=== PATIENT | female | born 1950 | race Caucasian/White ===

== ENCOUNTER 2022-11-03 10:49 | Outpatient (AMB) | payer MEDICARE, SELFPAY ==
--- NOTE | 2022-11-03 11:18 | A.SPINEOV_ITS ---
Intake Intake Visit Reasons: Back pain Intake Note: Ms. Crenshaw is here today c/o back pain. MRI done @ [facility] Medical/brought disc. Machine Shop Instructor Required: No Assessment & Plan Assessment & Plan (1) Neuroforaminal stenosis of lumbar spine: Code(s): M48.061 - Spinal stenosis, lumbar region without neurogenic claudication (2) Lumbar back pain with radiculopathy affecting left lower extremity: Code(s): M54.16 - Radiculopathy, lumbar region Plan Dear colleague Thank you for referring Jodee Crenshaw to the office today with a chief complaint of left leg pain HPI: This 72-year-old female presents with left-sided back pain that radiates down her left thigh. The pain comes returning and with walking and standing. Sitting alleviates the pain. In addition to the pain, she has numbness on the medial side of her thigh alfaro. I removed day L4-5 synovial cyst in February of 2017 for bilateral leg pain to which she responded well. The current pain is in a different distribution. The right side is unaffected. She denies weakness. She has not had lumbar injections. She tried physical therapy. 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 Medications: Prevagen, duloxetine, metoprolol, Eliquis, duloxetine, oxybutynin, pregabalin Allergies: Percocet Physical Exam: Pleasant female. Mild decreased sensation in L4 dermatome on the left side. Hyperreflexia of the upper extremities. Jorge reflex on the right. Radiological Studies: MRI done at [facility] on 08/04/2022 shows a thoracolumbar deformity due to a previous L3-T12 laminectomy and multilevel severe bilateral foraminal stenosis, especially at L4. No residual synovial cyst seen. Impression/Plan: This patient is suffering from left unilateral neurogenic claudication or in an L4 distribution. The treatment will be a left L4 foraminotomy if further conservative treatment does not work. She is going to call the office of Dr. Aguero to request a left L4 nerve block. She will return to my office if surgery is considered. Thank you for allowing me to participate in your patients care. total time spent was45 minutes in counseling ,coordination of plan, personal review of imaging, surgical decision making and subsequent plan Surinder Sorto MD, PhD Spine Fellowship Trained Neurosurgeon Director, [facility] [place] [facility] Coding Level of Care Code New Pt Level 4 (15291) Diagnoses Neuroforaminal stenosis of lumbar spine M48.061 Lumbar back pain with radiculopathy affecting left lower extremity M54.16
== END 2022-11-03 12:22 | disposition home or self-care (01) ==
PROVIDERS: PCP Registered Nurse; Visit Provider Neurological Surgery
DX: M48.061 Spinal stenosis, lumbar region without neurogenic claudication (principal); M54.16 Radiculopathy, lumbar region
CPT/HCPCS: 99204

== ENCOUNTER → 2022-11-03 10:49 | Outpatient (BNVA) | payer MEDICARE, SELFPAY | PROVIDERS: PCP Registered Nurse; Visit Provider Neurological Surgery ==

== ENCOUNTER 2022-12-19 14:10 | Outpatient (AMB) | payer MEDICARE, SELFPAY ==
--- NOTE | 2022-12-19 15:04 | HO.SPINEOV ---
Intake Intake Visit Reasons: discuss sx Intake Note: Mr. Crenshaw is here today to discuss surgical options. Electric Repair Supervisor Required: No Assessment & Plan Assessment & Plan (1) Lumbar back pain with radiculopathy affecting left lower extremity: Code(s): M54.16 - Radiculopathy, lumbar region (2) Neuroforaminal stenosis of lumbar spine: Code(s): M48.061 - Spinal stenosis, lumbar region without neurogenic claudication Plan Mrs Crenshaw is back in the office today. Please see Dr. Sorto note for the specifics of the problem. She came here to review her procedure that is upcoming left L4 foraminotomy. We reviewed the procedure at length including risks, benefits, recovery etc.. During our discussion she told me she is on a immunosuppressant medication called Tocilizumab. She takes this as monthly infusion for giant cell arteritis. The half life of the medication is 20 days according to the literature. This meaning, generally 3 half lives is an acceptable amount of time to be sure the medication is cleared out of her system. Her surgery was scheduled in [address] Sorto does not feel comfortable that we could give her optimal chance to avoid infection after surgery. He would like her to be off this for 2 months so we have rescheduled her for early February and she will no longer take this medication. She is in the middle of a cardiac workup with a Holter monitor any way for persistent symptoms of dizziness, sweating and fatigue which comes and goes which her clinical cytogeneticist scientist suspects may be paroxysmal AFib. She is on Eliquis for this. That workup should be completed by the time her surgery is booked for February. Total amount of time spent in this visit was 20 minutes in discussion of symptoms, lumbar imaging results and subsequent plan of care Javier Sorto MD,PhD [facility] Coding Level of Care Code Est Pt Level 3 (80406) Diagnoses Lumbar back pain with radiculopathy affecting left lower extremity M54.16 Neuroforaminal stenosis of lumbar spine M48.061
== END 2022-12-19 16:15 | disposition home or self-care (01) ==
PROVIDERS: PCP Registered Nurse; Visit Provider Neurological Surgery
DX: M54.16 Radiculopathy, lumbar region (principal); M48.061 Spinal stenosis, lumbar region without neurogenic claudication
CPT/HCPCS: 99213

== ENCOUNTER → 2022-12-19 14:10 | Outpatient (BNVA) | payer MEDICARE, SELFPAY | PROVIDERS: PCP Registered Nurse; Visit Provider Neurological Surgery | DX: M54.16 Radiculopathy, lumbar region (principal); M48.061 Spinal stenosis, lumbar region without neurogenic claudication | CPT/HCPCS: 99212 ==

== ENCOUNTER 2024-07-11 14:05 | Outpatient (AMB) | payer MEDICARE, SELFPAY ==
--- OUTSIDE RECORDS SUMMARY | 2024-07-11 14:09 | XMS_ITS | Encounter Summary ---
Author Organization [facility] Address [address] [place] [address] Care Team Providers Care Natural Fabricator Name Role Phone Suellen Joseph JULIAN Primary Care Provider [phone] Encounter Details Date Type Department Care Team (Late st Contact Info) Description 07/01/2024 Orders Only [facility] [address] [place] [id number] Spring Fitter Helper: Maricruz Wellington MD [address] [place] [id number] Osteoporosis, post-menopausal (Primary Dx) Social History Tobacco Use Types Packs/Day Years Used Date Smoking Tobacco: Never Passive Smoke Exposure: Never Smokeless Tobacco: Never Alcohol Use Standard Drinks/Week Comments Yes 0 (1 standard drink = 0.6 oz pur e alcohol) socaily Comments Unknown Sex and Gender Information Value Date Recorded Sex Assigned at Female 04/10/2023 1:47 PM EST Legal Sex Female 12:13 AM EDT Gender Identity Female 04/10/2023 6:36 PM EST Sexual Orientation Straight 04/10/2023 6: 36 PM EST documented as of this encounter Plan of Treatment Upcoming Encounters Date Type Department Care Team (Late st Contact Info) Description 09/30/2024 10:30 AM EDT Infusion [facility] [address] [place] [id number] Maricruz Nowak MD [address] [place] [phone] documented as of this encounter Visit Diagnoses Diagnosis Osteoporosis, post-menopausal- Primary Senile osteoporosis documented in this encounter Care Teams Natural Fabricator Relationship Specialty Start Date End Date Suellen Joseph NP [address] [address] PCP - General Nurse Practitioner Family 01/05/2306/20 documented as of this encounter
--- NOTE | 2024-07-11 14:12 | A.SPINEOV_ITS ---
Intake Visit Reasons: R side middle back to toes numb 3-4 weeks Intake Note: Ms. Crenshaw is here today c/o Rt. sided numbness X3-4 weeks. Inpatient Services Rn Required: No Assessment & Plan Assessment & Plan (1) Neuroforaminal stenosis of lumbar spine: Code(s): M48.061 - Spinal stenosis, lumbar region without neurogenic claudication Category: Medical (2) Bilateral lumbar radiculopathy: Code(s): M54.16 - Radiculopathy, lumbar region Category: Medical Plan Dear colleague, On 07/11/2024 I saw Jodee Crenshaw. She is a 74-year-old female known to our practice. We originally saw her for left radiculopathy in an L4 distribution. Her offered her an L4 foraminotomy. She was in the middle of an evaluation by cardiology and for whatever reason the surgery did not occur. She has been having shots that are no longer helpful for the left-sided pain. Today actually she comes for the right leg that since 6 weeks is having a burning pain in his same L4 distribution. The pain is constantly present. The pain does not in terfere with sleeping. She denies weakness or numbness. An MRI at [facility] shows severe bilateral L4 foraminal stenosis in addition to multilevel degenerative changes. This patient is suffering from a bilateral L4 foraminotomy due to severe bilateral L4 neuroforaminal stenosis. I offered her a bilateral L4 foraminotomy. She recently saw her potato chip maker and she is scheduled for a stress test. She denies chest pain or shortness of breath. She is also on tocilizumab every other week for giant cell arteritis. She already spoke to her doctor and the plan will most likely be to stop this 1 week before surgery and to restart when the incision is healed. The plan will be scheduled for surgery as soon as results of the stress test allow us to proceed. She will call my office with the results. I spent 40 minutes in his consult to review imaging and discussing plan of care. Surinder Sorto MD, PhD Spine Fellowship Trained Neurosurgeon Director, [facility] [place] [facility] Coding Level of Care Code Est Pt Level 5 (17389) Diagnoses Neuroforaminal stenosis of lumbar spine M48.061 Bilateral lumbar radiculopathy M54.16
== END 2024-07-11 15:17 | disposition home or self-care (01) ==
LOC: HO.HNS 14:06
PROVIDERS: PCP Registered Nurse; Visit Provider Neurological Surgery
DX: M48.061 Spinal stenosis, lumbar region without neurogenic claudication (principal); M54.16 Radiculopathy, lumbar region
CPT/HCPCS: 99215

== ENCOUNTER → 2024-07-11 14:05 | Outpatient (BNVA) | payer MEDICARE, SELFPAY | PROVIDERS: PCP Registered Nurse; Visit Provider Neurological Surgery | DX: M48.061 Spinal stenosis, lumbar region without neurogenic claudication (principal); M54.16 Radiculopathy, lumbar region | CPT/HCPCS: 99212 ==

== ENCOUNTER 2024-08-21 05:47 | Day surgery (SDC) | payer MEDICARE, SELFPAY ==
--- OUTSIDE RECORDS SUMMARY | 2024-07-25 11:47 | XMS_ITS | Encounter Summary ---
Author Organization [facility] Address [address] [place] [address] Care Team Providers Care Web Services Architect Name Role Phone Javier Jorge Primary Care Provider [phone] Encounter Details Date Type Department Care Team (Late st Contact Info) Description 07/11/2024 Orders Only [facility] XRay [address] [place] [address] Lali Felder MD [address], [place] [id number] Social History Tobacco Use Types Packs/Day Years [...] Info) Description 09/30/2024 10:30 AM EDT Infusion [facility] [address] [place], [place] [phone] Maricruz Nowak MD [address] [place] [address] documented as of this encounter Visit Diagnoses Not on filedocumented in this encounter Care Teams Web Services Architect Relationship Specialty Start Date End Date Javier Jorge [address] [place] [address] PCP - General 07/09/24 documented as of this encounter
[2024-08-06 11:54] VITALS: BP 112/68; PULSE 62; RESP 16; O2SAT 96; BMI 32.8
--- NOTE | 2024-08-06 12:17 | HO.ANESPROP2 ---
Documented by User: Luz Walters NP 08/19/24 12:12 HPI - Anesthesia Eval Consult details Narrative: 74yo F for L4 Foramintomy, 08/21/24 No recent illness No CP with house renovations. Some POWERS with stairs that has been ongoing for months Follows [facility] cardiology for PAF, hx pericarditis (2021). Last office eval 05/2024 after [facility] ER for chest pain (neg EKG and neg trops). Chest pain has not recurred. Treadmill stress negative. PAF: On eliquis Giant cell arteritis: remission with Actemra. Last injection 07/29/24 Reports slow to wake after anesthesia PMFSH Active Problems Active Problems: All Active Problems Bilateral lumbar radiculopathy (Acute) Lumbar back pain with radiculopathy affecting left lower extremity (Acute) Neuroforaminal stenosis of lumbar spine (Acute) Past Medical History Medical History Seasonal allergies HTN (hypertension) Arthritis Shoulder pain, bilateral Back pain POWERS (dyspnea on exertion) Hx of gastroesophageal reflux (GERD) Hypoglycemia Hx of pleural effusion (09/2021) Depression History of pericarditis (09/2021) PAF (paroxysmal atrial fibrillation) Giant cell arteritis Hx of chest pain Anxiety Family History Family history of problems with anesthesia: No Surgical History Surgical History Hx of spinal surgery History of repair of hiatal hernia Hx of colonoscopy History of spinal surgery (~1963) History of Problems with Anesthesia: No Social History Social History Household Members Other:: daughter Are you a primary career resource technician to a significant other at home: No Do you presently have visiting nurse or other home services: No Patient Tobacco Use Status: Never used Tobacco Use of substances other than those prescribed or required for medical reasons: No Have you been hit, kicked, punched, or otherwise hurt by someone within the past year? If so, by whom?: No Are you DNR?: No Advance Directives: No Advance Directives Information Provided: Yes Advance Directives on File: No Poor oral hygiene: No (plans for implant removal 08/13/24) Meds Allergies Allergy/AdvReac Type Severity Reaction Status Date / Time sulfamethoxazole (From Allergy Severe Itching Verified 08/21/24 06:07 Bactrim) trimethoprim (From Bactrim) Allergy Severe Itching Verified 08/21/24 06:07 oxycodone (From Percocet) Allergy Intermediate Vomiting Verified 08/21/24 06:07 Home Medications ?Medication ?Instructions ?Recorded ?Confirmed ?Last Taken ?Type acetaminophen 500 mg tablet (Pain 500 mg PO Q4H PRN pain 08/06/24 08/21/24 Unknown History Reliever Extra Strength (acetaminophen)) apixaban 5 mg tablet (Eliquis) 5 mg PO BID 08/06/24 08/21/24 08/17/24 History Held on 08/21/24. Instructions: Resume on 08/24/24. You can restart Eliquis 3 days after surgery calcium 600 mg (as 1 tab PO BID 08/06/24 08/21/24 Unknown History carbonate)-vitamin D3 20 mcg (800 unit) tablet (Caltrate with Vitamin D3) duloxetine 60 mg capsule,delayed 60 mg PO DAILY 08/06/24 08/21/24 Unknown History release estradiol 0.01% (0.1 mg/gram) 1 appl vaginal .QWEEK 08/06/24 08/21/24 Unknown History vaginal cream fluticasone propionate 50 1 spray intranasal DAILY 08/06/24 08/21/24 Unknown History mcg/actuation nasal spray,suspension (Flonase Allergy Relief) gabapentin 100 mg capsule 100 mg PO TID 08/06/24 08/21/24 08/20/24 History ipratropium bromide 42 mcg (0.06 2 spray intranasal DAILY 08/06/24 08/21/24 Unknown History %) nasal spray metoprolol succinate 25 mg 25 mg PO DAILY 08/06/24 08/21/24 08/21/24 History tablet,extended release 24 hr tocilizumab 162 mg/0.9 mL 162 mg subcut Q2W 08/06/24 08/21/24 07/29/24 History subcutaneous pen injector (Actemra ACTPen) Exam Height,Weight and Vital Signs: Height 5 ft 4 in Weight 86.7 kg Last Vital Signs Pulse 62 08/06/24 11:54 Resp 16 08/06/24 11:54 BP 112/68 08/06/24 11:54 Pulse Ox 96 08/06/24 11:54 O2 Del Method Room Air 08/06/24 11:54 Pertinent Lab Results Pertinent Lab Results: Cardiology Labs Blood Count & Diff? General Chemistry? Cardiac? Lipid Studies? WBC:?3.7 k/mm3?Low (05/30/24) Sodium: 143 mmol/L (05/30/24) Bilirubin, Total: 0.5 mg/dL (04/02/24) Cholesterol:?258 mg/dL?High (04/02/24) RBC: 4.73 m/mm3 (05/30/24) Potassium: 4.2 mmol/L (05/30/24) ? Triglycerides:?166 mg/dL?High (04/02/24) Hgb: 14.4 Gm/dL (05/30/24) Chloride: 105 mmol/L (05/30/24) ? HDL Cholesterol: 64 mg/dL (04/02/24) Hct: 44.2 % (05/30/24) Bicarbonate Level: 26 mmol/L (05/30/24) ? Non HDL Cholesterol:?194 mg/dL?High (04/02/24) MCV: 93.4 femtoliters (05/30/24) Anion Gap: 12 mmol/L (05/30/24) ? LDL Chol Calc ([facility]):?164 mg/dL?High (04/02/24) Platelet Count: 217 k/mm3 (05/30/24) Glucose Level: 88 mg/dL (05/30/24) ? ? ? BUN: 15 mg/dL (05/30/24) ? ? ? BUN: 20 mg/dL (04/02/24) ? ? ? Creatinine-Blood: 0.9 mg/dL (05/30/24) ? ? ? Estimated GFR Creatinine: 67 ML/MIN/1.73 M2 (05/30/24) ? ? ? Calcium: 9.8 mg/dL (05/30/24) ? ? ? Protein, Total: 6.4 Gm/dL (04/02/24) ? ? ? Albumin: 4.6 Gm/dL (04/02/24) ? ? ? Alkaline Phosphatase: 70 IU/L (04/02/24) ? ? ? AST (SGOT): 23 IU/L (04/02/24) ? ? ? ALT (SGPT): 31 IU/L (04/02/24) Narrative Narrative: ECG 12-Lead ? 10:23:13 Ventricular Rate: 56 BPM Atrial Rate: 56 BPM P-R Interval: 140 ms QRS Duration: 100 ms Q-T Interval: 406 ms QTC Calculation(Bazett): 391 ms P [place]: 24 degrees R [place]: -29 degrees T [place]: 19 degrees Sinus bradycardia Possible Left atrial enlargement Leftward axis Borderline ECG Confirmed Echocardiogram - Complete ? 10:43:13 Summary The left ventricle is normal in size, wall thickness and systolic function. The ejection fraction is 55-65%. The right ventricle is normal in size and function. The tricuspid valve is normal in appearance with mild to moderate tricuspid regurgitation. Signature ? Signed By: Josefina SHEPHERD, Brandon Simental Treadmill Stress 06/2024 Conclusions Summary No evidence of stress induced ischemia or prior myocardial infarction. Normal left ventricular ejection fraction, no wall motion abnormalities, normal chamber size. Airway Mallampati Class: II TM Dist: >3cm Neck ROM: Full ( tight side to side) Loose/Missing/Broken Teeth: Yes (extractions planned for 08/14/24, 1 implant to remain) Heart: RRR Lungs: CTAB Assessment and Plan Assessment Anesthesia Assessment: Anesthesia Plan Discussed and PAT Visit Final Anesthetic Review Family History of Problems with Anesthesia: No History of Problems with Anesthesia: No Documented by User: Arelis Pruitt MD 08/21/24 09:35 [facility] Past Medical History Medical History Seasonal allergies HTN (hypertension) Arthritis Shoulder pain, bilateral Back pain POWERS (dyspnea on exertion) Hx of gastroesophageal reflux (GERD) Hypoglycemia Hx of pleural effusion (09/2021) Depression History of pericarditis (09/2021) PAF (paroxysmal atrial fibrillation) Giant cell arteritis Hx of chest pain Anxiety Surgical History Surgical History Hx of spinal surgery History of repair of hiatal hernia Hx of colonoscopy History of spinal surgery (~1963) Social History Social History Household Members Other:: daughter Are you a primary career resource technician to a significant other at home: No Do you presently have visiting nurse or other home services: No Patient Tobacco Use Status: Never used Tobacco Use of substances other than those prescribed or required for medical reasons: No Have you been hit, kicked, punched, or otherwise hurt by someone within the past year? If so, by whom?: No Are you DNR?: No Advance Directives: No Advance Directives Information Provided: Yes Advance Directives on File: No Poor oral hygiene: No (plans for implant removal 08/13/24) Meds Allergies Allergy/AdvReac Type Severity Reaction Status Date / Time sulfamethoxazole (From Allergy Severe Itching Verified 08/21/24 06:07 Bactrim) trimethoprim (From Bactrim) Allergy Severe Itching Verified 08/21/24 06:07 oxycodone (From Percocet) Allergy Intermediate Vomiting Verified 08/21/24 06:07 Home Medications ?Medication ?Instructions ?Recorded ?Confirmed ?Last Taken ?Type acetaminophen 500 mg tablet (Pain 500 mg PO Q4H PRN pain 08/06/24 08/21/24 Unknown History Reliever Extra Strength (acetaminophen)) apixaban 5 mg tablet (Eliquis) 5 mg PO BID 08/06/24 08/21/24 08/17/24 History Held on 08/21/24. Instructions: Resume on 08/24/24. You can restart Eliquis 3 days after surgery calcium 600 mg (as 1 tab PO BID 08/06/24 08/21/24 Unknown History carbonate)-vitamin D3 20 mcg (800 unit) tablet (Caltrate with Vitamin D3) duloxetine 60 mg capsule,delayed 60 mg PO DAILY 08/06/24 08/21/24 Unknown History release estradiol 0.01% (0.1 mg/gram) 1 appl vaginal .QWEEK 08/06/24 08/21/24 Unknown History vaginal cream fluticasone propionate 50 1 spray intranasal DAILY 08/06/24 08/21/24 Unknown History mcg/actuation nasal spray,suspension (Flonase Allergy Relief) gabapentin 100 mg capsule 100 mg PO TID 08/06/24 08/21/24 08/20/24 History ipratropium bromide 42 mcg (0.06 2 spray intranasal DAILY 08/06/24 08/21/24 Unknown History %) nasal spray metoprolol succinate 25 mg 25 mg PO DAILY 08/06/24 08/21/24 08/21/24 History tablet,extended release 24 hr tocilizumab 162 mg/0.9 mL 162 mg subcut Q2W 08/06/24 08/21/24 07/29/24 History subcutaneous pen injector (Actemra ACTPen) Assessment and Plan Final Anesthetic Review NPO: Yes ASA Class: III Final Preanesthetic Review: No Changes in Pt Med Stat, Meds/Allgs Chart Reviewed, Consent Obtained/Reviewed and Anes Risks/Benef Reviewed Patient Risk: Intermediate Procedure Risk: Intermediate Anesthetic Plan Anesthetic Plan: GA Disposition: Standard PACU
[2024-08-21] VITALS (7 sets, daily range): BP systolic 123–172; BP diastolic 67–91; PULSE 59–95; RESP 12–16; TEMP 36.1–36.7; O2SAT 93–98; BMI 32.3
--- NOTE | ~2024-08-21 | FL_ITS ---
EXAMINATION: FL GUIDANCE ONLY HISTORY: l4 foraminotomy COMPARISON: None available. TECHNIQUE: Fluoroscopy time: 7 seconds. Cumulative Dose: 5.7722 mGy. DAP: 2.5108 mGym2 Images: 1. FINDINGS: A single fluoroscopic spot film of the lumbar spine in the lateral projection demonstrates a probe overlying the pedicles of L5. FL/FL guidance in OR IMPRESSION: Fluoroscopy during procedure. Please see procedure report for additional information. Electronically signed by: Lauri Loco MD 08/21/2024 10:01 AM EDT
[2024-08-21] MEDS: Lactated Ringers 1,000 ML 100 ML IVCONT (06:41)
--- NOTE | 2024-08-21 07:02 | P.HPSUR_ITS ---
Pre-Procedural Eval Section A - 24 Hr Update-Section A only Date of Service: 08/21/24 The patient is an INPATIENT: No Changes since office visit: No Cold of Flu in the past 2 weeks, No New Medical Problems, No Changes in Medication and No Patient answered all questions The patient has been examined within 24 hours of the surgical procedure. The History & Physical has been completed within 30 days and I have reviewed it.: No Section B - Complete if H&P > 30 days Chief Complaint: Spinal stenosis, lumbar region without neurogenic Allergies: Allergies Allergy/AdvReac Type Severity Reaction Status Date / Time sulfamethoxazole (From Allergy Severe Itching Verified 08/21/24 06:07 Bactrim) trimethoprim (From Bactrim) Allergy Severe Itching Verified 08/21/24 06:07 oxycodone (From Percocet) Allergy Intermediate Vomiting Verified 08/21/24 06:07 Review of Systems Sugical H&P ROS: Negative: Constitution, Cardiovascular, Respiratory, Neurological, Psychiatric, Hem-Onc, Allergic/Immunologic, Gastrointestinal, Genitourinary, Musculoskeletal, Integumentary, Endocrine and Eyes/Ears/Nose/Throat Exam Surgical H&P Exam: Normal: HEENT, Normal: Heart, Normal: Lungs, Normal: Extremities, Normal: Abdomen, Normal: Skin and Normal: Neurological (awake, aler t,oriented x 3 ) Plan Diagnosis/Plan: Unchanged Left L4 foraminotomy Time Spent With Patient Time: Total time managing care of this patient today __5__ minutes.
--- NOTE | 2024-08-21 07:37 | P.HPSUR_ITS ---
Pre-Procedural Eval Section A - 24 Hr Update-Section A only Date of Service: 08/21/24 The patient is an INPATIENT: No Changes since office visit: No Cold of Flu in the past 2 weeks, No New Medical Problems, No Changes in Medication and No Patient answered all questions The patient has been examined within 24 hours of the surgical procedure. The History & Physical has been completed within 30 days and I have reviewed it.: No Section B - Complete if H&P > 30 days Chief Complaint: Spinal stenosis, lumbar region without neurogenic Allergies: Allergies Allergy/AdvReac Type Severity Reaction Status Date / Time sulfamethoxazole (From Allergy Severe Itching Verified 08/21/24 06:07 Bactrim) trimethoprim (From Bactrim) Allergy Severe Itching Verified 08/21/24 06:07 oxycodone (From Percocet) Allergy Intermediate Vomiting Verified 08/21/24 06:07 Review of Systems Sugical H&P ROS: Negative: Constitution, Cardiovascular, Respiratory, Neurological, Psychiatric, Hem-Onc, Allergic/Immunologic, Gastrointestinal, Genitourinary, Musculoskeletal, Integumentary, Endocrine and Eyes/Ears/Nose/Throat Exam Surgical H&P Exam: Normal: HEENT, Normal: Heart, Normal: Lungs, Normal: Extremities, Normal: Abdomen, Normal: Skin and Normal: Neurological (awake, aler t,oriented x 3 ) Plan Diagnosis/Plan: Unchanged bilateral L4 foraminotomy Time Spent With Patient Time: Total time managing care of this patient today __5__ minutes.
--- NOTE | 2024-08-21 07:39 | PM.DS ---
DS: Providers Provider Date of Service: 08/21/24 Date of discharge: 08/21/24 Primary care physician: Javier Jorge NP Admitting clinician: Surinder Sorto DS: Diagnosis Discharge Diagnosis (1) Neuroforaminal stenosis of lumbar spine: Status: Acute DS: Summary Time Attestation Discharge Coordination Time (in mins): 5 Quality: Safe Use of Opioids Does Pt have an Active Cancer Diagnosis on the Problem List?: No Quality: Stroke Does the patient have a stroke diagnosis?: No Physical Exam Vital Signs: Vital Signs: Last Vital Signs Temp 98.0 F 08/21/24 06:14 Pulse 59 08/21/24 06:14 Resp 16 08/21/24 06:14 BP 123/67 08/21/24 06:14 Pulse Ox 98 08/21/24 06:14 O2 Del Method Room Air 08/21/24 06:14 BMI result Body Mass Index 32.3 Discharge Plan Discharge Patient Disposition: Home, Self-Care Referrals: Javier Jorge NP [Primary Care Provider, Medical] - 1 Week Discharge Medications: Continued acetaminophen [Pain Reliever ES(acetaminophn)] 500 mg tablet 500 mg PO Q4H PRN (Reason: pain) gabapentin 100 mg capsule 100 mg PO TID metoprolol succinate 25 mg tablet extended release 24 hr 25 mg PO DAILY estradiol 0.01 % (0.1 mg/gram) cream 1 appl vaginal .QWEEK ipratropium bromide 42 mcg (0.06 %) spray,non-aerosol 2 spray intranasal DAILY duloxetine 60 mg capsule,delayed release(DR/EC) 60 mg PO DAILY calcium carbonate-vitamin D3 [Caltrate with Vitamin D3] 600 mg-20 mcg (800 unit) tablet 1 tab PO BID fluticasone propionate [Flonase Allergy Relief] 50 mcg/actuation [place],Suspension 1 spray INTRANASAL DAILY Rx Instructions: administer into each nostril Actemra ACTPen 162 mg/0.9 mL Pen Injector 162 mg SUBCUT Q2W Held Eliquis 5 mg tablet 5 mg PO BID Hold Instructions: Resume on 08/24/24. You can restart Eliquis 3 days after surgery Discharge Orders: Discharge Order (Routine); Ordered 08/21/24 Ordered By: Javier Walden Diet: Advance to usual diet Activity on Discharge: As tolerated Activity Restrictions/Additional Instructions: After your spinal surgery we ask you to observe the following restrictions/guidelines: Activity: It is normal to feel some discomfort as you increase your activity, but that will improve with time. We ask you avoid heavy lifting or acitivities that cause pain. As a general rule, 8lbs is a safe limit for lifting right after surgery. Walk as much as you feel comfortable but not to exhaustion. You will feel extra tired the first few days after surgery. Stay well hydrated. It is OK to walk up and down stairs You may return to driving when you are off narcotics (such as vicodin, oxycodone, dilaudid, etc), and you are back to normal functional capacity. If you have any concerns please check with office before driving. Return to work is specific to each patient and each surgery, so please speak with your doctor/PA at first follow up. Please bring paperwork such as FMLA at that time if you need it filled out. Medications: For optimum pain control, it is best to start with a combination of 500 mg of Tylenol every 4 hours with 600 mg of Motrin every 8 hours, and use narcotics as needed in between for breakthrough pain. We will give you a short supply of narcotics after surgery (usually one weeks worth). If you need more please call the office but do not use more than prescribed. You will need to give our office 48 hours notice if you need narcotics refilled and we do not fill narcotics on weekends or evenings. If you are on a narcotic, it is a good idea to take a stool softener such as colace or senna to avoid constipation If you take blood thinner such as aspirin, Plavix, Coumadin, Effient, Eliquis etc for conditions such as Afib, DVT, Pulmonary embolus, coronary disease, stents etc please speak with your surgeon about specific details as to when you can resume these medications. You can resume NSAIDs on post op day 1 (eg: Motrin, Naproxen, etc). Follow up: Please call the office, , after surgery to arrange a 3 week follow up for wound check. Wound Care: You can restart Eliquis 3 days after surgery You may remove your dressing on the first day after surgery. ?You may ?leave open to air. Please do not remove the steri strips underneath. they will fall off on their own in one week. IT IS NORMAL FOR THE WOUND TO OOZE OR BE BLOODY FOR A FEW DAYS AFTER SURGERY. ?IF THIS HAPPENS JUST PLACE NEW DRESSING OVER IT TO AVOID STAINING CLOTHES. You may shower on post op day # 1 We ask that you do not let the water soak the wound. If it does get wet, just towel dry lightly. Please do not scrub your incision or place any type of chemical/ointment on the wound. No tub baths, pools or jacuzzis for one month. If you have any leaking or redness from your wound, or fevers, please call office Print Language: Wolof
--- NOTE | 2024-08-21 09:04 | W.PM.OPN ---
Operative Note Operative Note Date of Service: 08/21/24 Narrative: Preoperative Diagnosis: Bilateral L4 foraminal stenosis Operation: Bilateral L4 Laminotomy, Partial facetectomy and foraminotomy with use of microscope Consent Informed Consent was obtained for this operation. I have explained the nature, purpose and benefits of the operation. I have discussed the risks and benefit of the operation including possible complications or adverse events with patient/family. Alternative(s) were discussed with the patient with their relative benefits and risks as well as the consequences of not accepting the operation were included in obtaining consent. Surgeon: BJORN DICKINSON MD, PHD Procedure Assisted By: sima Jalloh Description of Procedure This patient is suffering from a left leg pain and right leg numbness. MRI shows bilateral L4 foraminal stenosis. The patient was offered a decompression of the nervous structures. The procedure complications were explained. The patient was consented. The patient was brought to the operating room and endotracheally intubated. The patient was turned in prone position on the Jose frame. Prep and drape was done followed by timeout. Physician assistant district attorney provided access. A mid lumbar incision was made followed by release of the paravertebral muscle o bilaterally to expose the L4 laminae and facet joint. An intraoperative x-ray was obtained to confirm the correct level. The microscope was brought in. I took over the procedure. The high-speed drill was used to do a left L4 laminotomy. #2 Kerr[place] was used to further remove the lamina towards the L4 foramen. With a nerve hook the medial wall of the L4 pedicle was palpated as well as the beginning of the L4 foramen. The facet joint was partially drilled down after which with a #2 Kerrison a foraminotomy was done. Finally a foraminotomy Kerrison was used to complete the foraminotomy. A long nerve hook could be easily passed lateral and dorsally from the nerve root, a sign of relief of the neuroforaminal stenosis and decompression of the nerve root. Then attention was turned to the right side. A similar procedure was done as described above leading to a good decompression of the right L4 nerve root The microscope was removed. Hemostasis was done. Incision was closed in 2 layers. Steri-Strips were used to approximate incision. An OpSite with Tegaderm was used to cover the incision. All sponge needle counts were correct. Patient was extubated and transported in stable is to recovery room. Anesthesia: General Estimated Blood Loss (ml): Minimal Duration of Surgery: Under 60 Minutes Postoperative Plan: Discharge to home
--- NOTE | 2024-08-21 11:39 | PC.NURSE ---
PATIENT STATES FEELING MUCH BETTER AFTER RECEIVING ZOFRAN IN PACU. PATIENT'S COLOR BETTER AT THIS TIME. PATIENT TO BE DISCHARGED HOME. DR. MONROY'S ALSO CAME BY.
== END 2024-08-21 11:40 | disposition home or self-care (01) ==
PROVIDERS: PCP Nurse Practitioner Family; Visit Provider Neurological Surgery
PROC: (CPT 63047; principal; 2024-08-21 07:30)
DX: M48.061 Spinal stenosis, lumbar region without neurogenic claudication (principal); M54.16 Radiculopathy, lumbar region
CPT/HCPCS: 63047; J0131; J0690; J1100; J2003; J2405; J2704; J3010

== ENCOUNTER → 2024-08-21 05:47 | Outpatient (BNV) | payer MEDICARE, SELFPAY | PROVIDERS: PCP Nurse Practitioner Family; Visit Provider Neurological Surgery | DX: M48.061 Spinal stenosis, lumbar region without neurogenic claudication (principal) | CPT/HCPCS: 63047; 99499 ==

== ENCOUNTER 2024-09-15 14:46 | Outpatient (AMB) | payer MEDICARE, SELFPAY ==
--- NOTE | 2024-09-15 15:00 | A.SPINEOV_ITS ---
Intake Visit Reasons: 1st post op Intake Note: Ms. Crenshaw is here today for her 1st post op. Environmental Protection Officer Required: No Allergies sulfamethoxazole (From Bactrim) Allergy (Severe, Verified 09/15/24 15:00) Itching trimethoprim (From Bactrim) Allergy (Severe, Verified 09/15/24 15:00) Itching oxycodone (From Percocet) Allergy (Intermediate, Verified 09/15/24 15:00) Vomiting Assessment & Plan Assessment & Plan (1) Bilateral lumbar radiculopathy: Code(s): M54.16 - Radiculopathy, lumbar region Category: Medical Plan Mrs Crenshaw is back in the office today for follow-up. She underwent a bilateral L4 foraminotomy about 3 weeks ago. It did help the numbness in her right leg significantly. For about 2 or 3 weeks it did help the left leg pain as well, but unfortunately over the last few days it has come back in feels to be just as bad as ever. It starts in her low back wraps around into her groin it goes down into her anterior thigh. She is frustrated with her lack of improvement but was initially pleased that the pain was gone. She does not have any specific centralized back pain but she does describe feeling like her back is weak. She has had this for the better part of her life where when she bends forward she feels as though she has a hard time standing up straight again. Her strength is normal and reflexes are intact. Her wound is healed up nicely. 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 I am wondering if just a simple decompression will not be enough to continue to hold the foramen open and she ultimately might need to have either interbody fusion done versus just unilateral pedicle screws with the radha. Because she has only had the pain returned for a few days I advised her just to continue to give this some more time, take her Tylenol and gabapentin and let us see where it goes. I will get a set of standing x-rays just to understand the bony anatomy a little bit better as well. I will see her back in 3 weeks and if she is no better I will get a new MRI and review with Dr. Sorto. Javier Sorto MD, PhD [facility] Orders: Orders XR lumbar spine 4V min Today M54.16 - Radiculopathy, lumbar region Coding Level of Care Code Global (16689) Diagnoses Bilateral lumbar radiculopathy M54.16
--- OUTSIDE RECORDS SUMMARY | 2024-09-15 15:19 | XMS_ITS | Clinical Summary ---
[facility] Organization [facility] Address [address] [place] [address] Care Team Providers Care Anesthesiologist/Physician Name Role Phone MyrnahawaBrandy Tomlin DO Primary Care Pro vider Surgical History Surgery Date Site/Laterality Comments HYSTERECTOMY PROCEDURE: HISTORICAL HYSTERECTOMY; COMMENT: total OTHER SURGICAL HISTORY PROCEDURE: OR REPAIR RECTOCELE SEPARATE PROCEDURE BACK SURGERY PROCEDURE: HISTORICAL BACK SURGERY; COMMENT: spinal cyst APPENDECTOMY PROCEDURE: HISTORICAL APPENDECTOMY COLONOSCOPY 11/06/19 15 PROCEDURE: HISTORICAL COLONOSCOPY; COMMENT: Polyps x 3, adenomas; diverticulosis, rectal ulceration; repeat in 3 yrs COLONOSCOPY 10/19/19 18 PROCEDURE: HISTORICAL COLONOSCOPY; COMMENT: diverticulosis and hemorrhoids; repeat in 5 yrs ESOPHAGOGASTRODUODENOSCOPY 07/25/19 17 PROCEDURE: OR ESOPHAGOGASTRODUODENOSCOPY TRANSORAL DIAGNOSTIC; COMMENT: Schatzki ring dilated with 50 F bougie; fundic gland polyps; HH; normal esophageal bxys ESOPHAGOGASTRODUODENOSCOPY 10/19/19 18 PROCEDURE: OR ESOPHAGOGASTRODUODENOSCOPY TRANSORAL DIAGNOSTIC; COMMENT: Patent GE junction; 5 cm hiatus hernia; fundic gland polyps BREAST BIOPSY Bilateral PROCEDURE: BX BREAST; PERC NEEDLE CORE W/IMAG GUID OTHER SURGICAL HISTORY Right PROCEDURE: OR EXCISION NAIL MATRIX PERMANENT REMOVAL; COMMENT: Fourth toe lateral border by Dr. Graham UPPER GASTROINTESTINAL ENDOSCOPY 08/06/19 PROCEDURE: UPPER GI ENDOSCOPY/EXAM; COMMENT: hiatal hernia OTHER SURGICAL HISTORY 02/2021 Bilateral PROCEDURE: MAMMOGRAM, SCREENING, BOTH BREASTS HERNIA REPAIR PROCEDURE: OR REPAIR FIRST ABDOMINAL WALL HERNIA Medical History Medical History Date Comments Fecal incontinence DX:Fecal inco ntinence Diverticulosis DX:Diverticulosi s Compression fracture of thor acic vertebra (CMS/HCC V24, CMS/HCC V28) DX:Compression fra cture of thoracic vertebra (HCC) Depressive disorder 03/09/2015 DX:Depressiv e disorder GERD (gastroesophageal reflux disease) 03/09/2015 DX:GERD (gastroesophageal reflux disease) Chronic cough 03/09/2015 DX:Chronic cough Migraine 03/09/2015 DX:Migraine Diverticulitis DX:Diverticuliti s Basal cell carcinoma 04/26/2016 DX:Basal ce ll carcinoma Hepatic lesion DX:Hepatic lesio n Abnormal MRI, thoracic spine DX: Abnormal MRI, thoracic spine Abnormal MRI, lumbar spine DX:Ab normal MRI, lumbar spine Obesity (BMI 30.0-34.9) 10/17/2018 DX:Obesi ty (BMI 30.0-34.9) Anxiety state DX:Anxiety state Family History Medical History Relation Name Comments COPD Father age 60 Coronary artery disease Mother cirr hosis/ age 77 Breast cancer Paternal Grandmother age 70s Stroke Sister Relation Name Status Comments Father Mother Paternal Grandmother age 70s Sister Social History Tobacco Use Types Packs/Day Years Used Date Smoking Tobacco: Never Smokeless Tobacco: Never Alcohol Use Standard Drinks/Week Comments Not Currently 0 (1 standard drink = 0.6 oz pur e alcohol) Comments Unknown Sex and Gender Information Value Date Recorded Sex Assigned at Not on file Legal Sex Female 3:39 PM EST Gender Identity Not on file Sexual Orientation Not on file Obstetrics History Last Filed Vital Signs Vital Sign Reading Time Taken Comments Blood Pressure 122/77 02/21/2022 9:30 AM EST Pulse 83 02/21/2022 9:30 AM EST Temperature - - Respiratory Rate - - Oxygen Saturation - - Inhaled Oxygen Concentration - - Weight 85 kg (187 lb 8 oz) 02/21/2022 9:30 AM ES T Height 160 cm (5' 3 ) 06/08/2021 9:02 AM EDT Body Mass Index 33.21 06/08/2021 9:02 AM EDT Plan of Treatment Health Maintenance Due Date Last Done Comments Zoster Vaccines (1 of 2) 02/04/2000 Cholesterol Screening (Lipid Panel) 01/28/2022 Colorectal Cancer Screening: Colonoscopy 01/28/2022 Falls Risk Assessment 01/28/2022 Hepatitis C Screening 01/28/2022 Social Influencers of Health Screening 01/28/2022 Breast Cancer Screening 02/23/2023 02/23/19, 02/09/2020, 12/06/2018, Additional history exists COVID-19 Vaccine (3 - 2023- season) 2023 06/29/2020, 06/08/2020 Depression Screening 02/20/2024 Influenza Vaccine (#1) 2024 , 12/12/2017, 12/18/2016, Additional history exists RSV Immunization Adult Patients (1 - 1-dose 75+ series) 2025 DTaP,Tdap,and Td Vaccines (3 - Td or Tdap) 10/10/2028 10/10/2018, 06/18/2005 Osteoporosis Screening (Bone Density Screening) 02/28/2031 02/28/2021, 12/06/2018 Pneumococcal Vaccine: 50+ Years Completed 12/18/2016, 11/09/2015 HIB Vaccines Aged Out No longer eligi ble based on patient's age to complete this topic HPV Vaccines Aged Out No longer eligi ble based on patient's age to complete this topic Hepatitis A Vaccines Aged Out No long er eligible based on patient's age to complete this topic Hepatitis B Vaccines Aged Out No long er eligible based on patient's age to complete this topic IPV Vaccines Aged Out No longer eligi ble based on patient's age to complete this topic MMR Vaccines Aged Out No longer eligi ble based on patient's age to complete this topic Meningococcal ACWY Vaccine Aged Out N o longer eligible based on patient's age to complete this topic Meningococcal B Vaccine Aged Out No l onger eligible based on patient's age to complete this topic RSV Immunization Patients Under 20 months Aged Out No longer eligible based on patient's age to complete this topic Varicella Vaccines Aged Out No longer eligible based on patient's age to complete this topic Procedures Procedure Name Priority Date/Time Associated Diagnosis Comments DXA BONE DENSITY STUDY 1+ SITS AXIAL SKEL Routine 02/28/2021 10:35 AM EST Other specified disorders of bone density and structure, unspecified site SCREENING MAMMOGRAPHY BI 2-VIEW BREAST INC CAD Routine 02/23/2021 8:55 AM EST Encounter for screening mammogram for malignant neoplasm of breast from Last 3 Months or Most Recently Relevant to Health Maintenance Results * DXA BONE DENSITY STUDY 1+ SITS AXIAL SKEL (02/28/2021 10:35 AM EST) Anatomical Region Laterality Modality Bone Densitometr y 02/28/2021 9:22 AM EST Narrative 02/28/2021 8:05 PM EST BONE DENSITY SCAN (DEXA): FINDINGS: Lumbar Spine T-score is -1.6. (SD relative to 20-29 y/o adult) Z-score is 0.5. (SD relative to age matched peers) This is considered osteopenia by WHO criteria. Left Hip T-score is -1.9. Z-score is -0.1. This is considered osteopenia by WHO criteria. Comparison exam(s): 12/06/2018 and 05/03/2015. Lumbar spine: 6.5% loss of bone mineral density compared with 2019, statistically significant at the 95% confidence level. No statistically significant change compared with 2015. Left hip: 3.3% loss of bone mineral density compared with 2019, statistically significant at the 95% confidence level. No statistically significant change compared with 2015. IMPRESSION: IMPRESSION: Osteopenia by WHO criteria. This patient has a 17% risk of major osteoporotic fracture and a 3.2% risk of hip fracture over the next 10 years. (World Health Organization Fracture Risk Assessment) [facility] Department of Internal Medicine recommends using National Osteoporosis Foundation (NOF) guidelines in treatment decisions related to osteoporosis. NOF guidelines suggest considering treatment for postmenopausal women and men aged 50 or older presenting with the following: History of hip or vertebral fracture. T-score = -2.5 (DXA) at the femoral neck, total hip, or spine, after appropriate evaluation to exclude secondary causes. Low bone mass (T-score between -1.0 and -2.5 at the femoral neck or spine) AND a 10-year probability of a hip fracture = 3% OR a 10-year probability of a major osteoporosis-related fracture = 20% based on the [place]-adapted WHO algorithm Please note that all treatment decisions require clinical judgment and consideration of individual patient factors, including patient preferences, co-morbidities, previous drug use, risk factors not captured in the FRAX model (e.g., frailty, falls, vitamin D deficiency, increased bone turnover, interval significant decline in bone density) and possible under- or over-estimation of fracture risk by FRAX. Optional alternative screening schedule based on idris Eagle., [facility] March 09, 2011 for patients with osteopenia (based on hip BMD T-score) is as follows: * advanced osteopenia (T scores -2.00 to -2.49), BMD testing every year * moderate osteopenia (T scores -1.50 to -1.99), BMD testing every 5 years mild osteopenia or normal BMD (T scores -1.50 and higher), BMD testing every 15 years Procedure Note Jael De Leon MD - 02/07/2022 BONE DENSITY SCAN (DEXA): FINDINGS: Lumbar Spine T-score is -1.6. (SD relative to 20-29 y/o adult) Z-score is 0.5. (SD relative to age matched peers) This is considered osteopenia by WHO criteria. Left Hip T-score is -1.9. Z-score is -0.1. This is considered osteopenia by WHO criteria. Comparison exam(s): 12/06/2018 and 05/03/2015. Lumbar spine: 6.5% loss of bone mineral density compared with 2019,statistically significant at the 95% confidence level. No statistically significant change comparedwith 2016. Left hip: 3.3% loss of bone mineral density compared with 2019,statistically significant at the 95% confidence level. No statistically significant change comparedwith 2016. IMPRESSION: IMPRESSION: Osteopenia by WHO criteria. This patient has a 17% risk of majorosteoporotic fracture and a 3.2% risk of hip fracture over the next 10 years. (World HealthOrganization Fracture Risk Assessment) [facility] Department of Internal Medicine recommendsusing National Osteoporosis Foundation (NOF) guidelines in treatment decisions related toosteoporosis. NOF guidelines suggest considering treatment for postmenopausal women and menaged 50 or older presenting with the following: History of hip or vertebral fracture. T-score = -2.5 (DXA) at the femoral neck, total hip, or spine, afterappropriate evaluation to exclude secondary causes. Low bone mass (T-score between -1.0 and -2.5 at the femoral neck or spine)AND a 10-year probability of a hip fracture = 3% OR a 10-year probability of a majorosteoporosis-related fracture = 20% based on the [place]-adapted WHO algorithm Please note that all treatment decisions require clinical judgment andconsideration of individual patient factors, including patient preferences, co- morbidities,previous drug use, risk factors not captured in the FRAX model (e.g., frailty, falls, vitaminD deficiency, increased bone turnover, interval significant decline in bone density) andpossible under- or over-estimation of fracture risk by FRAX. Optional alternative screening schedule based on nereyda Eagle al., NEJMJanuary 2011 for patients with osteopenia (based on hip BMD T-score) is as follows: * advanced osteopenia (T scores -2.00 to -2.49), BMD testing every year * moderate osteopenia (T scores -1.50 to -1.99), BMD testing every 5years mild osteopenia or normal BMD (T scores -1.50 and higher), BMD testingevery 15 years us Leesa Veloz MD IMG DXA PROCEDURES Final Result * SCREENING MAMMOGRAPHY BI 2-VIEW BREAST INC CAD (02/23/2021 8:55 AM EST) Anatomical Region Laterality Modality Radiographic Dana ging 02/09/2020 3:54 PM EST Narrative 02/23/2021 7:26 PM EST This is a summary report. The complete report is available in the patient's medical record. If you cannot access the medical record, please contact the sending organization for a detailed fax or copy. Exam: Screening mammogram Findings: Digital bilateral full-field screening mammography is performed with tomosynthesis and interpreted with the aid of computer-aided detection. Comparison is made with 02/09/2020 and as far back as 11/29/2016. Breast parenchyma is heterogeneously dense, limiting mammographic sensitivity. No new suspicious mass, architectural distortion, or suspicious calcifications. Impression: No mammographic evidence of malignancy. BI-RADS 1 - negative Procedure Note Jael De Leon MD - 02/07/2022 This is a summary report. The complete report is available in thepatient's medical record. If you cannot access the medical record, pleasecontact the sending organization for a detailed fax or copy. Exam: Screening mammogram Findings: Digital bilateral full-field screening mammography is performedwith tomosynthesis and interpreted with the aid of computer-aideddetection. Comparison is made with 02/09/2020 and as far back as1. Breast parenchyma is heterogeneously dense, limiting mammographicsensitivity. No new suspicious mass, architectural distortion, orsuspicious calcifications. Impression: No mammographic evidence of malignancy. BI-RADS 1 - negative us Leesa Veloz MD IMG XR PROCEDURES Final Result from Last 3 Months or Most Recently Relevant to Health Maintenance Advance Directives Documents on File Type Date Recorded Patient Acid Extractor Expl anation Health Care Decision (hx) 03/09/2017 AD ZAPATA DIRECTIVE Health Care Decision (hx) 03/09/2017 AD ZAPATA DIRECTIVE Health Care Decision (hx) 03/09/2017 AD ZAPATA DIRECTIVE Health Care Decision (hx) 03/09/2017 AD ZAPATA DIRECTIVE Health Care Decision (hx) 03/09/2017 AD ZAPATA DIRECTIVE Health Care Decision (hx) 03/09/2017 AD ZAPATA DIRECTIVE Health Care Decision (hx) 03/09/2017 AD ZAPATA DIRECTIVE Health Care Decision (hx) 03/09/2017 AD ZAPATA DIRECTIVE Health Care Decision (hx) 03/09/2017 AD ZAPATA DIRECTIVE Health Care Decision (hx) 03/09/2017 AD ZAPATA DIRECTIVE Health Care Decision (hx) 03/09/2017 AD ZAPATA DIRECTIVE Health Care Decision (hx) 03/09/2017 AD ZAPATA DIRECTIVE Health Care Decision (hx) 03/09/2017 AD ZAPATA DIRECTIVE Health Care Decision (hx) 03/09/2017 AD ZAPATA DIRECTIVE Care Teams Anesthesiologist/Physician Relationship Specialty Start Date End Date Brandy Wahl DO PCP - General Neck Fitter 02/27/17
--- OUTSIDE RECORDS SUMMARY | 2024-09-15 15:19 | XMS_ITS ---
Author Name [facility] Organization Unknown Care Team Organization Name Specialty Phone Email Start Date End [facility] Termed, PROVIDER Primary Care 12/27/202109/19
--- OUTSIDE RECORDS SUMMARY | 2024-09-15 15:19 | XMS_ITS | Data Portability ---
Author Organization [place] - [facility], [facility] Address [address] [place] [address] Care Team Providers Care Utilities Manager Name Role Phone DIEUDONNE HERRERA Primary Care Provider Assessment No assessment recorded. Plan of Treatment Reminders Order Date Submit Date Provider Last Modified By Organization Details Last Modified Time Details Appointments None record ed. Lab None record ed. Referral None record ed. Procedures None record ed. Surgeries None record ed. Imaging XR, should er, 2 or more view - 4v luis shldr. room 213 024 01/22/20 24 hcasagrand e1 [facility] Office, [address], [place], [address], 4 12:49:02 Medication Orders None record ed. Patient TargetsNo targets recorded. Patient InstructionsNo instructions recorded. Reason for Referral None Reported. Results Created Date Observation Date Name Description Value Unit Range Abnormal Flag Note LastModifiedBy Organization Detail LastModifiedTime 10/20/19 24 04/10/2023 imagi ng/di agnos tic resul t No observ ation record ed. [email or web address] Not Available 09/21 01:52:02 10/20/19 24 08/04/2022 imagi ng/di agnos tic resul t No observ ation record ed. [email or web address] Not Available 09/21 01:52:12 01/22/20 24 01/22/2024 XR, shoul justin, 2 or more view http:/ [email or web address] ?Encry pted=s hAaTro YD8dLq bEUv6g %2BXZw aYqtaq 0bqfl% 2Fg9IQ a4ajBk vP9nXo QUaueC m3YtLR FvZlgJ JJ8mAn HZtai3 4c1063 AC0Kqa XuCWKS uKiQtr MwF INTERFACE [facility] Office [address] [facility] [address], [address], 01/22/2024 11:02:22 01/22/20 24 01/22/2024 XR, shoul justin, 2 or more view http:/ [email or web address] ?Encry pted=s hAaTro YD8dLq bEUv6g %2BXZw aYqtaq 0bqfl% 2Fg9IQ a4ajBk vP9nXo QUaueC m3YtLR FvZlgJ JJ8mAn HZtai3 2x2482 AC0Kqa XuCWKS uKiQtr MwF INTERFACE [facility] [address], [place], [address], 01/22/2024 11:02:24 Result Notes Documentation Provider Name and Address Organization Details Recorded Time Xr, Shoulder, 2 Or More View : [email or web address] Encrypted=xnOyXxnQR9cJmxH Uv6g%8HSBshMdrzp6kchl%2Fg 8HFx1imPtiP6fImVWxhiBg3Xu TVNvRrhVAN1gPgGZdsz53u023 2DK1LmjDaWJTWkDkDycSrH Not Available [facility] 01/22/2024 11:02: 23 Xr, Shoulder, 2 Or More View : [email or web address] 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 Procedures Surgical History Date Name Laterality Status Provider Name and Address Organization Details Recorded Time 5 Sports Shoulder completed Luis Malin PA-C [address], [place], [address], [facility] 04/22/2024 11:03:39 4 Sports Shoulder Bilateral completed Luis Malin PA-C [address], [place], [address], [facility] 01/22/2024 11:26:02 4 Sports Shoulder Bilateral completed Luis Malin PA-C [address], [place], [address], [facility] 08/22/2023 11:49:40 4 Hymovis Knee Injection completed Makenzie Masters PA-C [address], [place], [address], [facility] 07/30/2023 12:59:56 4 Hymovis Knee Injection completed Makenzie Masters PA-C [address], [place], [address], [facility] 07/24/2023 09:49:35 Imaging Results None recorded. Procedure Notes None recorded. Medical Equipment None Reported. Allergies Allergen ID Allergen Name Allergen Category Reaction Reaction Severity Criticality Documentation Date Start Date Code Code System Note Provider Name and Address Organization Details Recorded Time 30474 acetamino phen / oxycodone medicatio n Not available Not available Not available 04/23/20232010 27213 3 RxNorm BRIEN lee [place] - [facility] 4 08:42:06 Medications Name Sig Start Date Stop Date Status Note LastModified by Organization Details LastModified Time Pain Reliever Extra Strength (acetaminop hen) 500 mg tablet TAKE 1 TABLET BY MOUTH EVERY 4 HOURS NEEDED FOR PAIN active Not Available Not Available No t Available metoprolol succinate ER 50 mg tablet,exte nded release 24 hr TAKE 0.5 TABLET BY MOUTH DAILY 06/13 completed Not Available Not Available Not Available metoprolol succinate ER 100 mg tablet,exte nded release 24 hr TAKE 1 TABLET BY MOUTH DAILY 07/23 completed Not Available Not Available Not Available prednisone 5 mg tablet TAKE 1 TABLET BY MOUTH EVERY OTHER DAY WITH FOOD 05/28 completed Not Available Not Available Not Available sulfamethox azole 800 mg-trimetho prim 160 mg tablet TAKE 1 TABLET BY MOUTH EVERY 12 HOURS FOR 5 DAYS 01/21 completed Not Available Not Available Not Available peg-electro lyte solution 420 gram oral solution active Not Available Not Available Not Available tramadol 50 mg tablet TAKE 1 TABLET BY MOUTH EVERY 4 HOURS NEEDED FOR PAIN 01/21 completed Not Available Not Available Not Available benzonatate 100 mg capsule TAKE 1 CAPSULE BY MOUTH THREE TIMES DAILY FOR 7 DAYS NEEDED FOR COUGH active Not Available Not Available No t Available cephalexin 500 mg capsule TAKE 1 CAPSULE BY MOUTH FOUR TIMES DAILY FOR 7 DAYS active Not Available Not Available No t Available docusate sodium 100 mg capsule TAKE ONE CAPSULE BY MOUTH TWICE DAILY NEEDED FOR CONSTIPAT ION active Not Available Not Available No t Available oxybutynin chloride ER 5 mg tablet,exte nded release 24 hr TAKE 1 TABLET BY MOUTH DAILY AT BEDTIME active Not Available Not Available No t Available montelukast 10 mg tablet TAKE 1 TABLET BY MOUTH DAILY 05/28 completed Not Available Not Available Not Available gabapentin 100 mg capsule TAKE 1 CAPSULE BY MOUTH THREE TIMES DAILY. NO DRIVING TILL PATIENT FEELS NON DROWSY WHILE ON MED active Not Available Not Available No t Available metoprolol succinate ER 25 mg tablet,exte nded release 24 hr TAKE 1 TABLET BY MOUTH DAILY active Not Available Not Available No t Available azelastine 137 mcg (0.1 %) nasal spray USE 2 SPRAYS IN EACH NOSTRIL TWICE DAILY 05/28 completed Not Available Not Available Not Available polyethylen e glycol 3350 17 gram/dose oral powder 01/21 completed Not Available Not Available Not Available estradiol 0.01% (0.1 mg/gram) vaginal cream active Not Available Not Available Not Available methylpredn isolone 4 mg tablets in a dose pack FOLLOW DIRECTION S IN PACKAGE 05/28 completed Not Available Not Available Not Available albuterol sulfate HFA 90 mcg/actuati on aerosol inhaler INHALE 2 PUFFS BY MOUTH EVERY 6 HOURS NEEDED FOR WHEEZING OR SHORTNESS OF BREATH active Not Available Not Available No t Available amoxicillin 500 mg-potassiu m clavulanate 125 mg tablet TAKE 1 TABLET BY MOUTH EVERY 12 HOURS FOR 5 DAYS 01/21 completed Not Available Not Available Not Available nitrofurant oin monohydrate /macrocryst als 100 mg capsule TAKE 1 CAPSULE BY MOUTH TWICE DAILY FOR 7 DAYS active Not Available Not Available No t Available duloxetine 30 mg capsule,del ayed release TAKE 1 CAPSULE BY MOUTH DAILY PLEASE TAKE IN ADDITION TO 60 MG TO EQUAL 90 MG DAILY 06/13 completed Not Available Not Available Not Available duloxetine 60 mg capsule,del ayed release TAKE 1 CAPSULE BY MOUTH DAILY active Not Available Not Available No t Available lactulose 10 gram/15 mL oral solution TAKE 15 ML BY MOUTH 1 TIME NEEDED TAKE 1 TIME 15 ML FOR LACTULOSE BREATH TEST 01/21 completed Not Available Not Available Not Available pregabalin 25 mg capsule TAKE 1 CAPSULE BY MOUTH TWICE DAILY DO NOT DRIVE WHILE TAKING THIS MEDICATIO N 05/28 completed Not Available Not Available Not Available pregabalin 75 mg capsule TAKE ONE CAPLET BY MOUTH TWICE DAILY 05/28 completed Not Available Not Available Not Available Benadryl Allergy Benadryl Allergy 25MG Tablet 06/16 completed Statu s: 'Disc ontin ued'; Not Available Not Available Not Available Centrum active Not Available Not Avail able Not Available ferrous gluconate 324 mg (38 mg iron) tablet TAKE 1 TABLET BY MOUTH DAILY 05/28 completed Not Available Not Available Not Available FreeStyle Lite Meter kit CHECK BLOOD SUGAR IN THE MRI SPECIALIST AND BEDTIME 06/13 completed Not Available Not Available Not Available FreeStyle Lite Strips CHECK POC TWICE DAILY 06/13 completed Not Available Not Available Not Available Actemra active Not Available Not Avail able Not Available Caltrate with Vitamin D3 600 mg-20 mcg (800 unit) tablet TAKE 1 TABLET BY MOUTH TWICE DAILY active Not Available Not Available No t Available Eliquis 5 mg tablet TAKE 1 TABLET BY MOUTH TWICE DAILY active Not Available Not Available No t Available Vitals Date Recorded Body height Body mass index (BMI) Body weight Provider Name and Address Organization Details Last Updated DateTime 04/22/2024 162.56 cm 32.6 kg/m2 39115.55 g Wanda Padron [facility] 04/22/2024 09:58:52 Date Recorded Body height Body mass index (BMI) Body weight Provider Name and Address Organization Details Last Updated DateTime 07/24/2023 162.56 cm 32.6 kg/m2 97894.55 g ROQUE COTTRELL [facility] 07/24/2023 09:43:06 Date Recorded Body height Body mass index (BMI) Body weight Provider Name and Address Organization Details Last Updated DateTime 07/30/2023 162.56 cm 32.6 kg/m2 00454.55 g Michael Patel [facility] 07/30/2023 12:53:55 Date Recorded Body height Body mass index (BMI) Body weight Provider Name and Address Organization Details Last Updated DateTime 08/22/2023 162.56 cm 32.6 kg/m2 34853.55 g Sanchez Spencer [facility] 08/22/2023 10:59:50 Date Recorded Body height Body mass index (BMI) Body weight Provider Name and Address Organization Details Last Updated DateTime 01/22/2024 162.56 cm 32.6 kg/m2 87460.55 g Luis Malin PA-C [address] [place], [place] [address] [address], [place], [address], [facility] 01/22/2024 10:40:36 Social History None recorded. Functional Status None recorded. Mental Status None recorded. Family History Nothing Reported. Medical History Condition Response Allergies/Hayfever N Coronary Artery Disease N Anxiety/Depression Y Emphysema N Thyroid Problems N COPD N Pacemaker N Anemia N Kidney/Bladder Problems N Vascular Disease N Heart Attack (NE) N Gastrointestinal Disease N Diabetes N Autoimmune disease N Bleeding Disorder N Orthotics N Arthritis Y Seizures/Epilepsy N Blood Clot N AIDS/HIV N Congestive Heart Failure (CHF) N Acid Reflux (GERD) N Cancer N Stroke N Asthma N Peripheral Vascular Disease N Sleep Apnea N Hepatitis N Heart Disease N Rheumatoid Arthritis N Arrhythmia N Pulmonary Embolism N Fibromyalgia N Hypertension N Osteoporosis N Gynecological HistoryNo gynecological history recorded. Obstetrics History GPAL:G 0 P 0 0 0 0 Past Encounters Encounter ID Performer Location Encounter Start Date Encounter Closed Date Diagnosis/Indication Diagnosis SNOMED-CT Code Diagnosis ICD10 Code Diagnosis Note [id number] Makenzie Masters PA-C [facility] [address] [place] [address] 05/29/2023 09:50:12 05/29/2023 13:50:42 Derangement of left knee 5043665182 7223882 M23.92 Sprain of medial collateral ligament of knee 92702601 S83.412D [id number] KAT Garcia [address] [place] [address] 06/14/2023 08:30:42 06/14/2023 09:07:52 Osteoarthritis of left knee joint 6288424876 81941 M17.12 [id number] KAT Garcia [address] [place] [address] 07/24/2023 09:34:58 08/14/2023 15:22:17 Osteoarthritis of left knee joint 0977670607 66930 M17.12 [id number] Makenzie Masters PA-C [facility] [address] [place] [address] 07/30/2023 12:28:32 08/22/2023 12:25:27 Derangement of left knee 3332289120 8146782 M23.92 [id number] Luis Malin PA-C [facility] [address] [place] [address] 08/22/2023 10:52:35 09/24/2023 15:10:54 Osteoarthritis of right glenohumeral joint 3790088878 583564 M19.011 Osteoarthr itis of left glenohumeral joint 1119653264 474187 M19.333 [id number] Luis Malin PA-C [facility] [address] [place] [address] 01/22/2024 10:30:08 02/07/2024 13:05:14 Bilateral chronic pain of upper limbs 8750080191 1223602 M25.511 M25.512 G89.29 [id number] Luis Malin PA-C [facility] [address] [place] [address] 04/22/2024 09:44:34 05/05/2024 14:27:58 Rotator cuff arthropathy of left shoulder 7242905343 9402401 M12.812 Health Concerns Section Related Observation LastModified by Organization Detai ls LastModified Time None Recorded Concern Status LastModified by Organization Details LastModified Time None Recorded Advance Directives Directive None Recorded Payers Insurance Date Sequence Insurance Name Policy Number Policy Arteaga Covered Member ID Arteaga Member ID Guarantor Name 04/22/2024 1 [place] [employer] Jodee Crenshaw [id number] Jodee Crenshaw 05/05/2024 2 [place] [id number] Jodee Crenshaw [id number] Jodee Crenshaw OBGyn Episode No OBEpisode recorded.
--- OUTSIDE RECORDS SUMMARY | 2024-09-15 15:19 | XMS_ITS | Encounter Summary ---
Author Organization [facility] Address [address] [place] [address] Care Team Providers Care Teacher Of The Sight Impaired Name Role Phone AniaJavier Primary Care Provider Encounter Details Date Type Department Care Team (Late st Contact Info) Description 07/11/2024 Orders Only [facility] Xray [address] [place] [address] Lali Felder MD [address] [place], [place] [phone] Social History Tobacco Use Types Packs/Day Years [...] Info) Description 09/30/2024 10:30 AM EDT Infusion [facility] [address] [place], [place] [id number] Maricruz Nowak MD [address] [place] [address] documented as of this encounter Visit Diagnoses Not on filedocumented in this encounter Care Teams Teacher Of The Sight Impaired Relationship Specialty Start Date End Date Javier Jorge [address] [place] [address] PCP - General 07/09/24 documented as of this encounter
== END 2024-09-15 15:26 | disposition home or self-care (01) ==
LOC: HO.HNS 14:46
PROVIDERS: PCP Nurse Practitioner Family; Visit Provider Physician Assistant
DX: M54.16 Radiculopathy, lumbar region (principal)
CPT/HCPCS: 99024

== ENCOUNTER 2024-09-15 14:46 | Outpatient (REF) | payer MEDICARE, SELFPAY ==
--- NOTE | ~2024-09-15 | XR_ITS ---
EXAMINATION: XR LUMBAR SPINE 4 OR MORE VIEWS HISTORY: M54.16 - Radiculopathy, lumbar region COMPARISON: There are no prior studies for comparison. FINDINGS: AP, and neutral, flexion, and extension lateral views of the lumbar spine are submitted. Osseous mineralization is normal. Five nonrib-bearing lumbar vertebral bodies are identified, maintaining normal height without evidence of fracture. Post laminectomy changes are noted in the upper lumbar spine. There is retrolisthesis of L2 on L3 measuring approximately 1.3 cm on all images. There is no change in flexion or extension. There is retrolisthesis of L3 on L4 measuring approximately 9-10 mm without significant change in flexion or extension. There is moderate to severe degenerative disc disease with disc space narrowing and osteophyte formation. The visualized paraspinal soft tissues are unremarkable. XR/XR lumbar spine 4V min IMPRESSION: Retrolisthesis of L2 on L3 and L3 on L4 without significant change in flexion or extension. Moderate to severe degenerative disc disease. Electronically signed by: Lauri Loco MD 09/15/2024 03:46 PM EDT
== END 2024-09-15 14:47 | disposition home or self-care (01) ==
LOC: HO.HOSX 14:46
PROVIDERS: PCP Nurse Practitioner Family; Visit Provider Physician Assistant
DX: M54.16 Radiculopathy, lumbar region (principal)
CPT/HCPCS: 72110; 99212

== ENCOUNTER → 2024-09-15 15:31 | Outpatient (BNV) | payer MEDICARE, SELFPAY | PROVIDERS: PCP Nurse Practitioner Family; Visit Provider Radiology Diagnostic Radiology | DX: M43.16 Spondylolisthesis, lumbar region (principal) | CPT/HCPCS: 72110 ==

== ENCOUNTER 2024-10-13 11:23 | Outpatient (AMB) | payer MEDICARE, SELFPAY ==
--- NOTE | 2024-10-13 11:44 | A.SPINEOV_ITS ---
Intake Visit Reasons: 2nd post op Intake Note: Ms. Crenshaw is here today for her 2nd post op Natural Resource Specialist Required: No Allergies sulfamethoxazole (From Bactrim) Allergy (Severe, Verified 09/15/24 15:00) Itching trimethoprim (From Bactrim) Allergy (Severe, Verified 09/15/24 15:00) Itching oxycodone (From Percocet) Allergy (Intermediate, Verified 09/15/24 15:00) Vomiting Assessment & Plan Assessment & Plan (1) Neuroforaminal stenosis of lumbar spine: Code(s): M48.061 - Spinal stenosis, lumbar region without neurogenic claudication Category: Medical Plan Mrs Crenshaw returned to the office today. She is status post bilateral L4 foraminotomies. She has had some improvement in the pain shooting down her left anterior thigh as compared to before surgery. It has not gone in the sense that she does not feel it anymore, but it does not seem to be his disabling her crippling. She still has the tingling and numbness going down the right anterior thigh and that seems about the same. She is more functional and more active. Her friend who is here with her today agrees that although she is still in pain it seems more manageable. She is not even taking anything more than Tylenol at this point. 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 She really has no interest in going in an fixing all this and in light of the fact that her pain is very manageable right now we certainly agree that this is best left alone. She has no restrictions and can follow up with us on an as-needed basis at this point. Javier Sorto MD, PhD [facility] Coding Level of Care Code Global (40971) Diagnoses Neuroforaminal stenosis of lumbar spine M48.061
--- OUTSIDE RECORDS SUMMARY | 2024-10-13 12:52 | XMS_ITS | Clinical Summary ---
Author Organization [facility] Address [address] [place] [address] Care Team Providers Care Wash Oil Cooler Operator Name Role Phone MyrnahawaBrandy Tomlin DO Primary Care Pro vider Surgical History Surgery Date Site/Laterality Comments HYSTERECTOMY PROCEDURE: HISTORICAL HYSTERECTOMY; COMMENT: total OTHER SURGICAL HISTORY PROCEDURE: AL REPAIR RECTOCELE SEPARATE PROCEDURE BACK SURGERY PROCEDURE: HISTORICAL BACK SURGERY; COMMENT: spinal cyst APPENDECTOMY PROCEDURE: HISTORICAL APPENDECTOMY COLONOSCOPY 11/06/19 15 PROCEDURE: HISTORICAL COLONOSCOPY; COMMENT: Polyps x 3, adenomas; diverticulosis, rectal ulceration; repeat in 3 yrs COLONOSCOPY 10/19/19 18 PROCEDURE: HISTORICAL COLONOSCOPY; COMMENT: diverticulosis and hemorrhoids; repeat in 5 yrs ESOPHAGOGASTRODUODENOSCOPY 07/25/19 17 PROCEDURE: AL ESOPHAGOGASTRODUODENOSCOPY TRANSORAL DIAGNOSTIC; COMMENT: Schatzki ring dilated with 50 F bougie; fundic gland polyps; HH; normal esophageal bxys ESOPHAGOGASTRODUODENOSCOPY 10/19/19 18 PROCEDURE: AL ESOPHAGOGASTRODUODENOSCOPY TRANSORAL DIAGNOSTIC; COMMENT: Patent GE junction; 5 cm hiatus hernia; fundic gland polyps BREAST BIOPSY Bilateral PROCEDURE: BX BREAST; PERC NEEDLE CORE W/IMAG GUID OTHER SURGICAL HISTORY Right PROCEDURE: AL EXCISION NAIL MATRIX PERMANENT REMOVAL; COMMENT: Fourth toe lateral border by Dr. Graham UPPER GASTROINTESTINAL ENDOSCOPY 08/06/19 PROCEDURE: UPPER GI ENDOSCOPY/EXAM; COMMENT: hiatal hernia OTHER SURGICAL HISTORY 02/2021 Bilateral PROCEDURE: MAMMOGRAM, SCREENING, BOTH BREASTS HERNIA REPAIR PROCEDURE: AL REPAIR FIRST ABDOMINAL WALL HERNIA Medical History [...] (World Health Organization Fracture Risk Assessment) [facility] Department of Internal Medicine recommends using National [...] Optional alternative screening schedule based on idris Egale., [facility] March 09, 2011 for patients with [...] years. (World HealthOrganization Fracture Risk Assessment) [facility] Department of Internal Medicine recommendsusing National Osteoporosis [...] Documents on File Type Date Recorded Patient Management Coordinator Expl anation Health Care Decision (hx) 03/09/2017 [...] (hx) 03/09/2017 AD ZAPATA DIRECTIVE Care Teams Wash Oil Cooler Operator Relationship Specialty Start Date End Date Brandy Wahl DO PCP - General Director Telemetry 02/27/17
--- OUTSIDE RECORDS SUMMARY | 2024-10-13 12:52 | XMS_ITS | Encounter Summary ---
Author Organization [facility] Address [address] [place] [address] Care Team Providers Care Mirror Maker Name Role Phone AniaJavier Primary Care Provider Encounter Details Date Type Department Care Team (Late st Contact Info) Description 07/11/2024 Orders Only [facility] Xray [address] [place] [address] Lali Felder MD [address] [place], [place] [phone] Social History Tobacco Use Types Packs/Day Years [...] Care Team (Late st Contact Info) Description 12/15/2024 3:30 PM EDT Infusion [facility] [address] [place], [place] [phone] Maricruz Nowak MD [address] [place] [address] documented as of this encounter Visit Diagnoses Not on filedocumented in this encounter Care Teams Mirror Maker Relationship Specialty Start Date End Date Javier Jorge [address] [place] [address] PCP - General 07/09/24 documented as of this encounter
== END 2024-10-13 12:07 | disposition home or self-care (01) ==
LOC: HO.HNS 11:23
PROVIDERS: PCP Nurse Practitioner Family; Visit Provider Physician Assistant
DX: M48.061 Spinal stenosis, lumbar region without neurogenic claudication (principal)
CPT/HCPCS: 99024

== ENCOUNTER → 2024-10-13 11:23 | Outpatient (BNVA) | payer MEDICARE, SELFPAY | PROVIDERS: PCP Nurse Practitioner Family; Visit Provider Physician Assistant | DX: Z47.89 Encounter for other orthopedic aftercare (principal); M48.061 Spinal stenosis, lumbar region without neurogenic claudication | CPT/HCPCS: 99212 ==